=== PATIENT | male | born 1940 | race Caucasian/White ===

== ENCOUNTER 2018-03-10 09:38 | Emergency (ER) | payer MEDICARE ==
[2018-03-10 10:06] VITALS: BP 146/70
--- NOTE | 2018-03-10 10:44 | UC ---
Skin Complaint HPI - HPI Summary HPI Summary: Rash mainly on the trunk starting about 6 days ago. It is itchy. It spares the hands, feet, legs. No new meds, foods, soaps. does not have the same issues. No fever, joint pain, nasal or eye symptoms, cough or wheezing. - History of Current Complaint Chief Complaint: UCSkin Time Seen by Provider: 03/10/18 10:18 Stated Complaint: ITCHY SKIN *1 WEEK Hx Obtained From: Patient, Family/Faucet Polisher Onset/Duration: Gradual Onset, Lasting Days Skin Exposure Onset/Duration: Days Ago Timing: Constant Onset Severity: Mild Current Severity: Mild Pain Intensity: 0 Location: Diffuse, Generalized Character: Pruritus Aggravating Factor(s): Touch Alleviating Factor(s): OTC Meds, Antihistamines Associated Signs & Symptoms: Positive: Rash. Negative: Nausea, Vomiting, Numbness, Thirst, Diaphoresis, Weakness, Shivering, Difficulty Breathing, Fever , Chills, Cough, Wheezing, Throat Tightening, Abdominal Pain, Syncope, Drainage , Bruising, Tenderness - Allergy/Home Medications Allergies/Adverse Reactions: Allergies Allergy/AdvReac Type Severity Reaction Status Date / Time No Known Allergies Allergy Verified 03/10/18 10:03 Home Medications: Home Medications Lisinopril/HCTZ 07/09.5(NF) [Zestoretic 07/09.(NF)] 1 each PO DAILY 03/10/18 [ History Confirmed 03/10/18] Omeprazole 20 mg PO DAILY 03/10/18 [History Confirmed 03/10/18] diphenhydrAMINE HCl [Benadryl Allergy 25 MG CAP] 25 mg PO DAILY 03/10/18 [ History Confirmed 03/10/18] Review of Systems Skin: Rash All Other Systems Reviewed And Are Negative: Yes PMH/Surg Hx/FS Hx/Imm Hx Previously Healthy: No - HTN, GERD - Surgical History Surgical History: None - Family History Known Family History: Positive: Other - no related skin diseases in the family. - Social History Lives: With Family Alcohol Use: Rare Substance Use Type: None Smoking Status (MU): Never Smoked Tobacco Physical Exam Triage Information Reviewed: Yes Appearance: Well-Appearing, No Pain Distress, Well-Nourished Vital Signs: Initial Vital Signs Temp 98.1 F 03/10/18 10:00 Pulse 88 03/10/18 10:00 Resp 16 03/10/18 10:00 BP 146/70 03/10/18 10:00 Pulse Ox 99 03/10/18 10:00 Vital Signs Reviewed: Yes Eyes: Positive: Conjunctiva Clear ENT: Positive: Normal ENT inspection, Pharynx normal, Uvula midline. Negative: Pharyngeal erythema, Nasal congestion, Nasal drainage, Trismus, Muffled voice Neck: Positive: Supple, Nontender, No Lymphadenopathy. Negative: Nuchal Rigidity Respiratory: Positive: Lungs clear, Normal breath sounds, No respiratory distress, No accessory muscle use. Negative: Respiratory distress, Decreased breath sounds, Accessory muscle use, Crackles, Rhonchi, Stridor Cardiovascular: Positive: RRR, No Murmur, Pulses Normal, Brisk Capillary Refill Abdomen Description: Positive: No Organomegaly, Soft. Negative: Distended, Guarding Musculoskeletal: Positive: Strength Intact, ROM Intact, No Edema Neurological: Positive: Alert, Muscle Tone Normal. Negative: Fatigued Psychological: Positive: Age Appropriate Behavior Skin Exam: Other - diffuse fine papular rash scatterred about the trunk. No neck , face, scalp, wrist or hand involvement. No hives. No induration. Course/Dx - Course Course Of Treatment: unclear as to the etiology but there are no signs of pitaraisis, fungal infection, cellulitis, contact dermatitis. - Diagnoses Provider Diagnoses: rash Discharge - Sign-Out/Discharge Documenting (check all that apply): Discharge/Admit/Transfer - Discharge Plan Condition: Good Disposition: HOME Prescriptions: methylPREDNISolone [Medrol Dosepak 4 MG*] 4 mg PO .SEE [employer] INSTRUCTION #21 tab Patient Education Materials: Acute Rash (ED) Referrals: Martin PACK,Pierce Johnson [Primary Care Provider] - - Billing Disposition and Condition Condition: GOOD Disposition: Home
== END 2018-03-10 10:44 | disposition home or self-care (01) ==
LOC: UCCORT 09:38
DX: R21 Rash and other nonspecific skin eruption (principal); L29.9 Pruritus, unspecified; I10 Essential (primary) hypertension; K21.9 Gastro-esophageal reflux disease without esophagitis; Z79.899 Other long term (current) drug therapy
CPT/HCPCS: 99202; G0463